=== PATIENT | female | born 1945 | race Caucasian/White ===

== ENCOUNTER 2017-05-09 10:33 | Day surgery (SDC) | payer MEDICARE, BC ==
[~2017-05-09 10:33] MED LIST: Lactated Ringers 1,000 ML IV SCH; Sodium Chloride 0.9% 10 ML Syringe FLUSH PRN
[2017-05-09] MEDS ORDERED: Lidocaine 2% 5 ML SDV ONE (11:13)
[2017-05-09] MEDS ORDERED: Propofol 200 MG/20 ML SDV ONE ×2 (12:06→12:13)
[2017-05-09] MEDS ORDERED: Midazolam 1 MG/ML 2 ML SDV ONE ×2 (12:06→12:13)
[2017-05-09] MEDS ORDERED: fentaNYL 100 MCG/2 ML SDV ONE ×2 (12:06→12:13)
--- NOTE | 2017-05-09 12:17 | PCM.PN ---
- General Info Date of Service: 05/09/17 - Review of Systems Systems Review Comment:: 72-year-old female referred for colonoscopy. Her last colon exam was 5 years ago. She has a history of diverticular disease of the colon with a previous colon resection. She also reports that her brother was recently diagnosed with colon polyps. I discussed the proposed colonoscopy with the patient. She appears to understand and agrees to proceed with colonoscopy today accepting risks. - Patient Data Vitals - most recent: Last Vital Signs Temp 98 F 05/09/17 11:42 Pulse 82 05/09/17 11:42 Resp 20 05/09/17 11:42 BP 130/76 05/09/17 11:42 Pulse Ox 96 05/09/17 11:42 Weight - most recent: 79.379 kg Med Orders - Current: Current Medications Lactated Ringer's (Ringers, Lactated) 1,000 mls @ 125 mls/hr IV ASDIRECTED SLY Last Admin: 05/09/17 11:59 Dose: 125 mls/hr Sodium Chloride (Saline Flush) 10 ml FLUSH ASDIRECTED PRN PRN Reason: Keep Vein Open Discontinued Medications Fentanyl (Sublimaze) Confirm Administered Dose 100 mcg .ROUTE .STK-MED ONE Stop: 05/09/17 12:07 Midazolam HCl (Versed 1 Mg/Ml) Confirm Administered Dose 2 mg .ROUTE .STK-MED ONE Stop: 05/09/17 12:07 Propofol (Diprivan 20 Ml) Confirm Administered Dose 200 mg .ROUTE .STK-MED ONE Stop: 05/09/17 12:07 - Problem List Review Problem List Initiated/Reviewed/Updated: Yes - Assessment Assessment:: History of diverticulosis Family history of colon polyps - Plan Plan:: Colonoscopy
--- NOTE | 2017-05-09 12:57 | PCM.OPNOTE ---
- General Post-Op/Procedure Note Date of Surgery/Procedure: 05/09/17 Operative Procedure(s): Colonoscopy with Polypectomy Findings: Small polyps Few diverticuli near anastomosis from prior Sigmoid Colectomy Pre Op Diagnosis: Family History of Colon Polyps. History of Diverticulosis Post-Op Diagnosis: Colon Polyps. Diverticulosis Anesthesia Technique: MAC Primary Surgeon: Jas Bourgeois Pathology: Colon Polyps Output, Urine Amount: 0 EBL in mLs: 0 Complications: None Condition: Good Free Text/Narrative:: Intake & Output 05/08/17 05/09/17 05/09/17 22:59 06:59 14:59 Intake Total 500 Balance 500
--- NOTE | 2017-05-09 14:36 | OR ---
Date of Procedure: 05/09/2017 PREOPERATIVE DIAGNOSES: 1. History of diverticulosis. 2. Family history of colon polyps. POSTOPERATIVE DIAGNOSES: 1. Colon polyps. 2. Diverticulosis. OPERATION PERFORMED: Colonoscopy with polypectomy. INDICATIONS FOR SURGERY: This 72-year-old female has a history of diverticulosis, even having had a colon resection for this in the past. She also reveals today that her brother was recently diagnosed with colon polyps. FINDINGS: The patient had polyps in 3 locations. There was a cluster of 2 polyps in the cecum, these range from 5-7 mm in size and are sessile in configuration. There was a small polyp in the transverse colon, 4 mm in size. This was located at 80 cm from the anal verge. There was also a 5 mm polyp in the sigmoid colon, 15 cm from the anal verge. The patient has a patent anastomosis noted in the sigmoid region, approximately 20 cm from the anal verge. This was widely patent with no evidence of complication. There were a few scattered diverticula near the anastomosis, although these did not appear to be acutely inflamed. PROCEDURE: The patient was taken to the operating room. She was given intravenous sedation and with her in the left lateral decubitus position, digital rectal exam was performed showing no rectal masses. The Olympus colonoscope was inserted into the rectum. Retroflexed examination of the rectal canal was performed. The scope was then advanced to the level of the anastomosis where careful examination was performed. The scope was then further advanced along the colon until the entire colon had been examined and the cecum had been reached. Cecal acquisition was confirmed by noting the normal internal cecal anatomy and identifying the light to transilluminate the abdominal wall in the right lower quadrant. After examining the cecum, the scope was slowly withdrawn sequentially re-examining the colonic segments. During insertion and withdrawal of the scope, the above-described polyps were identified. These were in turn each removed with a cautery snare and retrieved as they were visualized. No evidence of complication was noted and good hemostasis was assured with use of cautery at the polypectomy sites. Once all visible polyps have been removed and with no sign of any complicating process, the scope was removed and the patient was taken from the operating room in satisfactory condition. ESTIMATED BLOOD LOSS: Zero. COMPLICATIONS: None. PROGNOSIS: Good. DOMONIQUE Bourgeois MD /[id number]
[2017-05-09 20:08] VITALS: BP 133/75
== END 2017-05-09 14:10 | disposition home or self-care (01) ==
LOC: LL.SDS 10:33
PROVIDERS: ATTEND Surgery
DX: Z12.11 Encounter for screening for malignant neoplasm of colon (principal); D12.0 Benign neoplasm of cecum; D12.3 Benign neoplasm of transverse colon; K63.5 Polyp of colon; K57.30 Diverticulosis of large intestine without perforation or abscess without bleeding; I10 Essential (primary) hypertension; E11.9 Type 2 diabetes mellitus without complications; E78.5 Hyperlipidemia, unspecified; J30.2 Other seasonal allergic rhinitis; Z90.49 Acquired absence of other specified parts of digestive tract; Z98.890 Other specified postprocedural states; Z79.82 Long term (current) use of aspirin; Z79.899 Other long term (current) drug therapy
CPT/HCPCS: 00810; 45385; J2250; J2704; J3010; J7120; 88305

== ENCOUNTER 2020-12-01 09:41 | Day surgery (SDC) | payer MEDICARE, BC ==
[2020-12-01] MEDS: Lactated Ringers 1,000 ML IV SCH (09:30)
[~2020-12-01 09:41] MED LIST changes: -Lactated Ringers 1,000 ML IV SCH
--- NOTE | 2020-12-01 10:33 | PCM.PN ---
- General Info Date of Service: 12/01/20 - Review of Systems Systems Review Comment:: 75-year-old female with history of colon polyps here for surveillance colonoscopy. She is medically stable to proceed today. Her recent history and physical is reviewed and no significant changes are noted. I have again discussed the proposed colonoscopy with the patient. She agrees to proceed excepting risks. She states no recent changes in bowel pattern or rectal bleeding. - Patient Data Vitals - Most Recent: Last Vital Signs Temp 98.4 F 12/01/20 09:13 Pulse 69 12/01/20 09:13 Resp 18 12/01/20 09:13 BP 150/79 H 12/01/20 09:13 Pulse Ox 99 12/01/20 09:13 Weight - Most Recent: 81.647 kg Med Orders - Current: Current Medications Lactated Ringer's (Ringers, Lactated) 1,000 mls @ 125 mls/hr IV ASDIRECTED SLY Last Admin: 12/01/20 09:30 Dose: 125 mls/hr Documented by: Sodium Chloride (Saline Flush) 10 ml FLUSH ASDIRECTED PRN PRN Reason: Keep Vein Open Sepsis Event Note - Focused Exam Vital Signs: Vital Signs Temp Pulse Resp BP Pulse Ox 12/01/20 09:13 98.4 F 69 18 150/79 H 99 - Problem List Review Problem List Initiated/Reviewed/Updated: Yes - Assessment Assessment:: History of colon polyps - Plan Plan:: Colonoscopy
[2020-12-01] MEDS ORDERED: Propofol 200 MG/20 ML SDV ONE ×2 (10:43→10:52)
--- NOTE | 2020-12-01 11:30 | PCM.OPNOTE ---
- General Post-Op/Procedure Note Date of Surgery/Procedure: 12/01/20 Operative Procedure(s): Colonoscopy with biopsy Findings: Localized area of inflammation with induration in the ascending colon Moderate sized external hemorrhoids Healthy appearing sigmoid colon anastomosis Pre Op Diagnosis: History of colon polyps Post-Op Diagnosis: Ascending colon lesion. External hemorrhoids Anesthesia Technique: MAC Primary Surgeon: Jas Bourgeois Pathology: Biopsies of a sending colon lesion EBL in mLs: 2 Complications: None Condition: Good
[2020-12-01 12:40] VITALS: BP 158/75; PULSE 78
--- NOTE | 2020-12-01 13:09 | OR ---
Date of Procedure: 12/01/2020 PREOPERATIVE DIAGNOSIS: History of colon polyps. POSTOPERATIVE DIAGNOSIS: Inflammatory ascending colon lesion and external hemorrhoids. OPERATIONS PERFORMED: Colonoscopy with biopsy. INDICATIONS FOR SURGERY: This 75-year-old female has a known history of colon polyps. She comes for surveillance colonoscopy. FINDINGS: No polyps were seen on today's exam. The patient did have a localized area of inflammatory change in her ascending colon near the hepatic flexure. There was a localized area of mucosal erosion with some exudate in this area. The tissue was somewhat indurated, although no stenosis had developed at this point. The inflammation appeared to encompass approximately 50% to 60% of the circumference of the bowel in this area. The patient also has a healthy-appearing sigmoid colon anastomosis from prior sigmoid colectomy. This showed no indication of stenosis or any abnormality. There are also moderate-sized external hemorrhoids. PROCEDURE IN DETAIL: The patient was taken to the operating room. She was given intravenous sedation, and with her in the left lateral decubitus position, digital rectal exam was performed showing no rectal masses. The Olympus colonoscope was inserted into the rectum and retroflexed examination of the rectal canal was performed. The scope was then carefully advanced under direct visualization through the entire length of the colon until the cecum was reached. Cecal acquisition was confirmed by noting the normal internal cecal anatomy including the appendiceal orifice and ileocecal valve. The light was also noted to transilluminate the abdominal wall in the right lower quadrant. After examining the cecum, the scope was withdrawn back to the area of abnormality seen in the distal ascending colon near the hepatic flexure. Biopsies of this abnormal-appearing area are taken. The examination was continued by slowly withdrawing the scope, and after the entire colon and rectum had been examined, the scope was removed. The patient was taken from the operating room in satisfactory condition. ESTIMATED BLOOD LOSS: 2 mL. COMPLICATIONS: None. PROGNOSIS: Good. DOMONIQUE Bourgeois MD /[id number]
== END 2020-12-01 12:15 | disposition home or self-care (01) ==
LOC: LL.SDS 09:41
PROVIDERS: ATTEND Surgery
DX: Z12.11 Encounter for screening for malignant neoplasm of colon (principal); K63.3 Ulcer of intestine; K64.4 Residual hemorrhoidal skin tags; Z79.899 Other long term (current) drug therapy; Z87.891 Personal history of nicotine dependence; Z01.812 Encounter for preprocedural laboratory examination; Z20.822 Contact with and (suspected) exposure to COVID-19
CPT/HCPCS: 00812; 88305; J2704; J7120; U0002

== ENCOUNTER 2022-06-07 07:52 | Day surgery (SDC) | payer MEDICARE, BC ==
[2022-06-07] MEDS ORDERED: Lactated Ringers 1,000 ML IV SCH (08:00)
[2022-06-07] MEDS ORDERED: Sodium Chloride 0.9% 10 ML Syringe FLUSH PRN (08:00)
[2022-06-07] MEDS ORDERED: Propofol 200 MG/20 ML SDV ONE (08:14)
[2022-06-07 12:21] VITALS: BP 155/77; PULSE 71
== END 2022-06-07 10:54 | disposition home or self-care (01) ==
LOC: LL.SDS 07:52
PROVIDERS: ATTEND Surgery
DX: K57.30 Diverticulosis of large intestine without perforation or abscess without bleeding (principal); I10 Essential (primary) hypertension; E78.5 Hyperlipidemia, unspecified; J44.9 Chronic obstructive pulmonary disease, unspecified; E11.42 Type 2 diabetes mellitus with diabetic polyneuropathy; M20.41 Other hammer toe(s) (acquired), right foot; Z98.0 Intestinal bypass and anastomosis status; Z79.84 Long term (current) use of oral hypoglycemic drugs; Z79.899 Other long term (current) drug therapy; Z86.010 Personal history of colon polyps
CPT/HCPCS: 00812; 82947; J2704; J7120

== ENCOUNTER 2025-05-06 19:04 | Emergency (ER) | payer MEDICARE, BC ==
[2025-05-06 19:18] LABS: BASOPHILS ABSOLUTE AUTO 0.04 K/uL (0.00-0.20); BASOPHILS PERCENT AUTO 0.4 % (0.0-2.0); EOSINOPHILS ABSOLUTE AUTO 0.10 K/uL (0.00-0.50); EOSINOPHILS PERCENT AUTO 1.1 % (0.0-5.0); IMMATURE GRAN ABSOLUTE AUTO 0.01 10^3/uL (0.00-0.04); IMMATURE GRAN PERCENT AUTO 0.1 % (0.0-0.4); LYMPHOCYTES ABSOLUTE AUTO 1.59 K/uL (0.50-3.50); LYMPHOCYTES PERCENT AUTO 17.0 % (10.0-50.0); MONOCYTES ABSOLUTE AUTO 0.90 K/uL (0.00-1.00); MONOCYTES PERCENT AUTO 9.6 % (2.0-14.0); NEUTROPHILS ABSOLUTE AUTO 6.74 K/uL (1.40-7.00); NEUTROPHILS PERCENT AUTO 71.8 % (45.0-80.0); PLATELET COUNT,PLT 263 K/uL (150-350); RED BLOOD CELL COUNT 4.50 M/uL (3.77-5.09); RED CELL DISTRIBUTION WIDTH 14.0 % (11.2-14.1); WHITE BLOOD CELL COUNT,WBC 9.4 K/uL (4.0-10.2)
[2025-05-06 19:48] LABS: ALANINE AMINOTRANSFERASE,ALT 25 U/L (12-78); ASPARTATE AMNIOTRANSFERASE,AST 24 U/L (15-37); BILIRUBIN TOTAL 0.2 mg/dL (0.2-1.0); BLOOD UREA NITROGEN,BUN 16 mg/dL (7-18); CARBON DIOXIDE,CO2 28.0 mmol/L (21.0-32.0); CHLORIDE,CL 104 mmol/L (98-107); CREATININE 1.14 mg/dL (0.51-1.17); GLUCOSE RANDOM 115 mg/dL (70-99); POTASSIUM,K 4.6 mmol/L (3.5-5.1); PRO B-TYPE NATRIUR PEPT,BNPPRO 257 pg/mL (0-125); PROTEIN TOTAL,TP 7.3 g/dL (6.4-8.2); SODIUM,NA 141 mmol/L (136-145)
[2025-05-06 19:49] LABS: ESTIMATED GFR 49 mL/min (>=60)
[2025-05-06] MEDS: Sodium Chloride 0.9% 10 ML Syringe FLUSH PRN (20:33)
[2025-05-06 23:10] VITALS: BP 148/68; PULSE 80
== END 2025-05-06 22:52 | disposition home or self-care (01) ==
LOC: LL.ED 19:04
DX: R07.2 Precordial pain (principal); I10 Essential (primary) hypertension; J44.9 Chronic obstructive pulmonary disease, unspecified; E11.9 Type 2 diabetes mellitus without complications; Z90.49 Acquired absence of other specified parts of digestive tract; Z79.899 Other long term (current) drug therapy; Z79.82 Long term (current) use of aspirin; Z79.84 Long term (current) use of oral hypoglycemic drugs
CPT/HCPCS: 36415; 71045; 80053; 83605; 83735; 83880; 84484; 85025; 85379; 93005; 93010; 99284; 99285; A9270-GY; J7040